=== PATIENT | male | born 1970 | race Caucasian/White ===

== ENCOUNTER 2017-06-25 10:45 | Emergency (ER) | payer BC ==
[2017-06-25 11:14] VITALS: BP 112/70
--- NOTE | 2017-06-25 12:37 | UC ---
UC General HPI - HPI Summary HPI Summary: 47 y/o male presents to the urgent care c/o of FLORES, fatigue, join pains for the past 1 week. Pt is concerned with Lyme disease. Pt reports he has been exposed to tick bites in the past and has not taking any prophylactic treatment. Pt states he has had mild fever at home. Denies SOB, chest pain, N/V /D or urinary symptoms. Pt has not other complains. - History of Current Complaint Hx Obtained From: Patient Onset/Duration: Gradual Onset, Lasting Days, Still Present Onset Severity: Mild Current Severity: Moderate Pain Intensity: 4 - headache Associated Signs & Symptoms: Positive: Fever, Weakness. Negative: Abdominal Pain, Back Pain, Chest Pain, Diarrhea, Dysuria, Nausea, Vomiting <Cristy Hutchins - Last Filed: 06/26/17 20:54> <Marleen Pollock - Last Filed: 06/27/17 07:36> - History of Current Complaint Chief Complaint: UCGeneralIllness Stated Complaint: FEVER HEADACHES BODYACHES Time Seen by Provider: 06/25/17 12:22 - Allergy/Home Medications Allergies/Adverse Reactions: Allergies Allergy/AdvReac Type Severity Reaction Status Date / Time Diazepam [From Valium] Allergy Hives Verified 06/26/17 21:36 Penicillins Allergy Unknown Verified 06/26/17 21:36 Reaction Details PMH/Surg Hx/FS Hx/Imm Hx Previously Healthy: Yes Endocrine History: Dyslipidemia - diet control Cardiovascular History: Hypertension - Diet control - Surgical History Surgical History: Yes Surgery Procedure, Year, and Place: left knee repair 2013 - Family History Family History: Thyroid cancer, dyslipidemia - Social History Occupation: Employed Full-time Lives: With Family Alcohol Use: Occasionally Alcohol Amount: 4-6 PER WEEK Substance Use Type: None, Marijuana Substance Use Comment - Amount & Last Used: occasionally Smoking Status (MU): Never Smoked Tobacco Have You Smoked in the Last Year: No <Cristy Hutchins - Last Filed: 06/26/17 20:54> Review of Systems Constitutional: Fever - at home, Fatigue Skin: Negative Eyes: Negative ENT: Negative Respiratory: Negative Cardiovascular: Palpitations Gastrointestinal: Negative Genitourinary: Negative Motor: Negative Neurovascular: Negative Musculoskeletal: Arthralgia Neurological: Headache Psychological: Negative All Other Systems Reviewed And Are Negative: Yes <Cristy Hutchins - Last Filed: 06/26/17 20:54> Physical Exam Triage Information Reviewed: Yes Appearance: Well-Appearing, No Pain Distress, Well-Nourished Vital Signs: Initial Vital Signs Temp 97.7 F 06/25/17 11:10 Pulse 80 06/25/17 11:10 Resp 16 06/25/17 11:10 BP 112/70 06/25/17 11:10 Pulse Ox 98 06/25/17 11:10 Vital Signs Reviewed: Yes Eye Exam: Normal - PERRLA, EOMI, fundi grossly normal Eyes: Positive: Conjunctiva Clear ENT Exam: Normal ENT: Positive: Normal ENT inspection, Hearing grossly normal, Pharynx normal, TMs normal Dental Exam: Normal Neck exam: Normal Neck: Positive: Supple, Nontender, No Lymphadenopathy Respiratory Exam: Normal Respiratory: Positive: Chest non-tender, Lungs clear, Normal breath sounds Cardiovascular Exam: Normal Cardiovascular: Positive: RRR, No Murmur, Pulses Normal Abdominal Exam: Normal Abdomen Description: Positive: Nontender, No Organomegaly. Negative: CVA Tenderness (R), CVA Tenderness (L) Bowel Sounds: Positive: Present Musculoskeletal Exam: Normal Musculoskeletal: Positive: Strength Intact, ROM Intact, No Edema Neurological Exam: Normal Psychological Exam: Normal Skin Exam: Normal <Cristy Hutchins - Last Filed: 06/26/17 20:54> Vital Signs: Initial Vital Signs Temp 97.7 F 06/25/17 11:10 Pulse 80 06/25/17 11:10 Resp 16 06/25/17 11:10 BP 112/70 06/25/17 11:10 Pulse Ox 98 06/25/17 11:10 <Marleen Pollock - Last Filed: 06/27/17 07:36> Course/Dx - Course Course Of Treatment: 47 y/o male presents to the urgent care c/o of FLORES, fatigue , join pains for the past 1 week. Pt is concerned with Lyme disease. Pt reports he has been exposed to tick bites in the past and has not taking any prophylactic treatment. Pt states he has had mild fever at home. Denies SOB, chest pain, N/V/D or urinary symptoms. Hx obtained. PE WNL. Exposure to tick bites in the past, no HX of rashes, Pt w/ arthalgias, FLORES , fever. concerned w/ Lyme disease and reqeuset Serology. Pt counceled in the posibility that results may return negative at the onset of disease. However Pt still wants the test. Pt Rx Doxycycline PO and Ibuprofen PO OTC to alleviate symptoms of FLORES. Advised to take the full course of ABX despite the results or wait for test results and f/u with PCP for further evaluation and treatment or w/ DR Ellis infectious Disease DR. Pt understood and agreed and left the clinic ambulating. - Differential Dx - Multi-Symptom Differential Diagnoses: Other - tick born illness, URI, headache, influenza, pharyngitis, Provider Diagnoses: 1-Headache. 2-Arthralgias <Cristy Hutchins - Last Filed: 06/26/17 20:54> Discharge <Cristy Hutchins - Last Filed: 06/26/17 20:54> <Marleen Pollock - Last Filed: 06/27/17 07:36> - Discharge Plan Condition: Stable Disposition: HOME Patient Education Materials: Lyme Disease (ED) Referrals: Diamond GONZALES,Tonya Grullon [Primary Care Provider] - 1 Week [place] SAGE,Jose Costa [Medical Doctor] - If Needed Additional Instructions: Please take full course of antibiotic as directed even though Lyme serology return negative. Please f/u with your PCP if symptoms do not improve or worsen for further evaluation and treatment. If lyme serology return positive you will get a call from us. If positive serology please f/u with DR Ellis specialized in Lyme disease. Attestation Statement User Type: Provider - I was available for consult. This patient was seen by the advanced practice provider. The patient was not presented to, seen by, or examined by me.-Casey <Marleen Pollock - Last Filed: 06/27/17 07:36>
== END 2017-06-25 12:43 | disposition home or self-care (01) ==
LOC: UCEAST 10:45
DX: R51 Headache (principal); M25.50 Pain in unspecified joint; R53.83 Other fatigue; R50.9 Fever, unspecified; Z88.0 Allergy status to penicillin; F12.90 Cannabis use, unspecified, uncomplicated
CPT/HCPCS: 86618; 99212; G0463

== ENCOUNTER 2017-06-26 19:03 | Emergency (ER) | payer BC ==
[2017-06-26 19:11] VITALS: BP 133/80
[2017-06-26] MEDS ORDERED: Ibuprofen TAB* 600 MG PO ONE (19:20)
--- NOTE | 2017-06-26 20:22 | UC ---
HPI Febrile Illness - HPI Summary HPI Summary: Fever, aches, chills, FLORES starting 3 days ago. Had one known tick bite 6 weeks ago, thinks it was only on for a few hours. Seen here yesterday for same, drawn for lyme titer and rx doxycycline. Has not started it, wants to wait for a positive test before starting abx. Also having bilat flank pain and facial swelling, feels he should be checked for a kidney infection. - History of Current Complaint Chief Complaint: UCGeneralIllness Time Seen by Provider: 06/26/17 20:03 Hx Obtained From: Patient Onset/Duration: Started Days Ago Timing: Constant Initial Severity: Moderate Current Severity: Moderate Alleviating Factors: OTC Medicine Associated Signs and Symptoms: Chills, Headache, Joint Pain, Myalgia Related History: Recent Tick Bite - low-risk, 6 weeks ago - Allergy/Home Medications Allergies/Adverse Reactions: Allergies Allergy/AdvReac Type Severity Reaction Status Date / Time Diazepam [From Valium] Allergy Hives Verified 06/26/17 19:10 Penicillins Allergy Unknown Verified 06/26/17 19:10 Reaction Details Home Medications: Home Medications Ibuprofen TAB* [Advil TAB*] 600 mg PO PRN 06/26/17 [History] PMH/Surg Hx/FS Hx/Imm Hx Previously Healthy: Yes Endocrine/Hematology History: Denies: Hx Diabetes Cardiovascular History: Denies: Hx Hypertension, Hx Pacemaker/ICD, Other Cardiovascular Problems/ Disorders Respiratory History: Denies: Other Respiratory Problems/Disorders GI History: Denies: Other GI Disorders History: Denies: Hx Renal Disease Musculoskeletal History: Reports: Hx Arthritis - HANDS Denies: Other Musculoskeletal History Sensory History: Denies: Hx Contacts or Glasses, Hx Hearing Aid Opthamlomology History: Denies: Hx Contacts or Glasses Neurological History: Denies: Other Neuro Impairments/Disorders Psychiatric History: Denies: Hx Panic Disorder - Cancer History Hx Hematologic Symptoms: No Hx Chemotherapy: No - Surgical History Surgery Procedure, Year, and Place: left knee repair 2014 Hx Anesthesia Reactions: No Infectious Disease History: No Infectious Disease History: Denies: Hx Clostridium Difficile, Hx Hepatitis, Hx Human Immunodeficiency Virus (HIV), Hx of Known/Suspected MRSA, Hx Shingles, Hx Tuberculosis, Hx Known/ Suspected VRE, Hx Known/Suspected VRSA, History Other Infectious Disease, Traveled Outside the [place] in Last 30 Days - Family History Known Family History: Positive: Hypertension - Social History Alcohol Use: Occasionally Alcohol Amount: 4-6 PER WEEK Substance Use Type: Reports: None, Marijuana Substance Use Comment - Amount & Last Used: occasionally Smoking Status (MU): Never Smoked Tobacco Have You Smoked in the Last Year: No Review of Systems Constitutional: Fever, Chills, Fatigue Skin: Negative Eyes: Negative ENT: Negative Respiratory: Negative Cardiovascular: Negative Gastrointestinal: Negative Genitourinary: Negative Motor: Negative Neurovascular: Negative Musculoskeletal: Arthralgia, Decreased ROM, Myalgia Neurological: Headache Psychological: Negative All Other Systems Reviewed And Are Negative: Yes Physical Exam Triage Information Reviewed: Yes Appearance: Well-Nourished, Other: - febrile, sweating Vital Signs: Initial Vital Signs Temp 102.8 F 06/26/17 19:06 Pulse 103 06/26/17 19:06 Resp 16 06/26/17 19:06 BP 133/80 06/26/17 19:06 Pulse Ox 100 06/26/17 19:06 Eye Exam: Other - PERRL Eyes: Positive: Conjunctiva Clear, Other: - eyelids puffy ENT Exam: Normal ENT: Positive: Normal ENT inspection, Hearing grossly normal, Pharynx normal, TMs normal Dental Exam: Normal Neck exam: Normal Neck: Positive: Supple, Nontender, No Lymphadenopathy Respiratory Exam: Normal Respiratory: Positive: Chest non-tender, Lungs clear, Normal breath sounds, No respiratory distress, No accessory muscle use Cardiovascular: Positive: No Murmur, Tachycardia Abdomen Description: Positive: Nontender, No Organomegaly, Soft. Negative: CVA Tenderness (R), CVA Tenderness (L) Musculoskeletal Exam: Normal Musculoskeletal: Positive: Strength Intact, ROM Intact Neurological Exam: Normal Neurological: Positive: Alert Psychological Exam: Normal Skin Exam: Other - swelling in eyelids Course/Dx - Diagnoses Clinic Provider Diagnoses: fever - Provider Notifications Discussed Patient Care With: Amanda Nagel Discussed With Above Provider: 20:32 Discharge - Discharge Plan Condition: Stable Disposition: AGAINST MEDICAL ADVICE
== END 2017-06-26 20:44 | disposition left against medical advice (07) ==
LOC: UCEAST 19:03
DX: R50.9 Fever, unspecified (principal); Z53.20 Procedure and treatment not carried out because of patient's decision for unspecified reasons
CPT/HCPCS: 81003; 87502; 99212; A9270-GY; G0463

== ENCOUNTER 2017-06-26 21:26 | Emergency (ER) | payer BC ==
[2017-06-26 23:36] LABS: Urine Bacteria 1+ (Absent); Urine Bilirubin Negative (Negative); Urine Glucose Negative (Negative); Urine Nitrite Negative (Negative)
[2017-06-27] MEDS ORDERED: Ketorolac INJ* 30 MG/ML 1 ML VIAL IV ONE (00:06)
[2017-06-27] MEDS ORDERED: NS 0.9% 1000 ML* 1,000 ML IV ONE (00:08)
[2017-06-27 00:52] LABS: Hematocrit 43 % (42-52); Hemoglobin 14.5 g/dl (14.0-18.0); Mean Corpuscular HGB Conc 34 g/dl (31-36); Mean Corpuscular Hemoglobin 30 pg (27-31); Mean Corpuscular Volume 89 fL (80-94); Mean Platelet Volume 9 um3 (7.4-10.4); Red Blood Count 4.85 10^6/ul (4.0-5.4); Red Cell Distribution Width 14 % (10.5-15); White Blood Count 6.1 10^3/ul (3.5-10.8)
[2017-06-27 01:12] LABS: Albumin 4.2 g/dL (3.2-5.2); BUN/Creatinine Ratio 10.7 (8-20); Calcium 9.4 mg/dL (8.6-10.3); EGFR African American 82.3 (>60); Globulin 3.3 g/dL (2-4); Total Bilirubin 1.3 mg/dL (0.2-1.0); Total Protein 7.5 g/dL (6.4-8.9)
--- NOTE | 2017-06-27 01:30 | ED ---
José Miguel Vazquez Alfonso, scribed for Gail Pinzon MD on 06/26/17 at 2340 . HPI Febrile Illness - HPI Summary HPI Summary: This patient is a 47 year old M presenting from [facility] to [facility] with a chief complaint of febrile illness since 3 days ago. Pt rates the pain 2/10 in severity. Symptoms alleviated by OTC medications. Pt reports chills, diaphoresis , flank pain, facial swelling, slight headache, and low back stiffness. Pt denies cough, dysuria, and urinary retention. He reports known tick bites approximately 6 weeks ago for which he had a drawn for a Lyme titer and rx doxycycline. He has not begun taking doxycycline. Pt denies IVDA. Denies PMHx of DM. PMHx of HLD. - History of Current Complaint Chief Complaint: EDFever Time Seen by Provider: 06/26/17 22:59 Hx Obtained From: Patient Onset/Duration: Started Days Ago - 3, Still Present Timing: Constant Initial Severity: Mild Current Severity: Mild Pain Intensity: 2 Pain Scale Used: 0-10 Numeric Alleviating Factors: OTC Medicine Associated Signs and Symptoms: Other: - . Pt reports chills, diaphoresis, flank pain, facial swelling, slight headache, and low back stiffness. Pt denies cough, dysuria, and urinary retention. Related History: Recent Tick Bite - 6 weeks ago approx. - Allergy/Home Medications Allergies/Adverse Reactions: Allergies Allergy/AdvReac Type Severity Reaction Status Date / Time Diazepam [From Valium] Allergy Hives Verified 06/26/17 21:36 Penicillins Allergy Unknown Verified 06/26/17 21:36 Reaction Details PMH/Surg Hx/FS Hx/Imm Hx Endocrine/Hematology History: Denies: Hx Diabetes Cardiovascular History: Denies: Hx Hypertension, Hx Pacemaker/ICD, Other Cardiovascular Problems/ Disorders Respiratory History: Denies: Other Respiratory Problems/Disorders GI History: Denies: Other GI Disorders History: Denies: Hx Renal Disease Musculoskeletal History: Reports: Hx Arthritis - HANDS Denies: Other Musculoskeletal History Sensory History: Denies: Hx Contacts or Glasses, Hx Hearing Aid Opthamlomology History: Denies: Hx Contacts or Glasses Neurological History: Denies: Other Neuro Impairments/Disorders Psychiatric History: Denies: Hx Panic Disorder - Cancer History Hx Hematologic Symptoms: No Hx Chemotherapy: No - Surgical History Surgery Procedure, Year, and Place: left knee repair 2014 Hx Anesthesia Reactions: No Infectious Disease History: No Infectious Disease History: Denies: Hx Clostridium Difficile, Hx Hepatitis, Hx Human Immunodeficiency Virus (HIV), Hx of Known/Suspected MRSA, Hx Shingles, Hx Tuberculosis, Hx Known/ Suspected VRE, Hx Known/Suspected VRSA, History Other Infectious Disease, Traveled Outside the [place] in Last 30 Days - Family History Known Family History: Positive: Hypertension - Social History Lives: With Family - Alcohol Use: Occasionally Alcohol Amount: 4-6 PER WEEK Substance Use Type: Reports: Marijuana Substance Use Comment - Amount & Last Used: occasionally Smoking Status (MU): Never Smoked Tobacco Have You Smoked in the Last Year: No Review of Systems Positive: Fever, Chills, Skin Diaphoresis Negative: Cough Positive: Other - Positive flank pain Positive: other - Negative urinary retention. Negative: dysuria Positive: Other - Positive facial swelling, and low back stiffness Positive: Headache - "Slight" All Other Systems Reviewed And Are Negative: Yes Physical Exam Triage Information Reviewed: Yes Vital Signs On Initial Exam: Initial Vitals Temp Pulse Resp BP Pulse Ox 99.9 F 90 16 126/76 97 06/26/17 21:29 06/26/17 21:29 06/26/17 21:29 06/26/17 21:29 06/26/17 21:29 Vital Signs Reviewed: Yes Appearance: Positive: Well-Appearing, No Pain Distress Skin: Positive: Warm, Skin Color Reflects Adequate Perfusion, Dry Head/Face: Positive: Normal Head/Face Inspection Eyes: Positive: EOMI, [place]ION ENT: Positive: Pharynx normal, TMs normal Neck: Positive: Supple, Nontender Respiratory/Lung Sounds: Positive: Clear to Auscultation, Breath Sounds Present. Negative: Rales, Rhonchi, Wheezes Cardiovascular: Positive: RRR, Other - No gallop. Negative: Murmur, Rub Abdomen Description: Positive: Nontender, Soft, Other: - No rebound. Negative: Distended, Guarding Bowel Sounds: Positive: Present Musculoskeletal: Positive: Strength/ROM Intact, Other - No edema Neurological: Positive: Sensory/Motor Intact, Alert, Oriented to Person Place, Time, CN Intact II-III - 2-12 Psychiatric: Positive: Affect/Mood Appropriate - [place] Coma Scale Coma Scale Total: 15 Diagnostics - Vital Signs Vital Signs Temp Pulse Resp BP Pulse Ox 06/26/17 22:35 97.4 F 75 16 124/70 99 06/26/17 21:29 99.9 F 90 16 126/76 97 - Laboratory Lab Results: Lab Results 06/26/17 06/27/17 06/27/17 Range/Units 23:23 00:40 00:40 WBC 6.1 (3.5-10.8) 10^3/ul RBC 4.85 (4.0-5.4) 10^6/ul Hgb 14.5 (14.0-18.0) g/dl Hct 43 (42-52) % MCV 89 (80-94) fL MCH 30 (27-31) pg MCHC 34 (31-36) g/dl RDW 14 (10.5-15) % Plt Count 179 (150-450) 10^3/ul MPV 9 (7.4-10.4) um3 Neut % (Auto) 76.2 (38-83) % Lymph % (Auto) 11.7 L (25-47) % [place] % (Auto) 11.1 H (1-9) % Eos % (Auto) 0.5 (0-6) % Baso % (Auto) 0.5 (0-2) % Absolute Neuts (auto) 4.6 (1.5-7.7) 10^3/ul Absolute Lymphs (auto) 0.7 L (1.0-4.8) 10^3/ul Absolute Monos (auto) 0.7 (0-0.8) 10^3/ul Absolute Eos (auto) 0 (0-0.6) 10^3/ul Absolute Basos (auto) 0 (0-0.2) 10^3/ul Absolute Nucleated RBC 0 10^3/ul Nucleated RBC % 0.1 Sodium 133 (133-145) mmol/L Potassium 4.0 (3.5-5.0) mmol/L Chloride 98 L (101-111) mmol/L Carbon Dioxide 28 (22-32) mmol/L Anion Gap 7 (2-11) mmol/L BUN 13 (6-24) mg/dL Creatinine 1.21 H (0.67-1.17) mg/dL Est GFR ( Amer) 82.3 (>60) Est GFR (Non-Af Amer) 64.0 (>60) BUN/Creatinine Ratio 10.7 (8-20) Glucose 118 H (70-100) mg/dL Calcium 9.4 (8.6-10.3) mg/dL Total Bilirubin 1.30 H (0.2-1.0) mg/dL AST 33 (13-39) U/L ALT 53 H (7-52) U/L Alkaline Phosphatase 49 (34-104) U/L Total Protein 7.5 (6.4-8.9) g/dL Albumin 4.2 (3.2-5.2) g/dL Globulin 3.3 (2-4) g/dL Albumin/Globulin Ratio 1.3 (1-3) Urine Color Straw Urine Appearance Clear Urine pH 6.0 (5-9) Ur Specific [place] 1.002 L (1.010-1.030) Urine Protein Negative (Negative) Urine Ketones Negative (Negative) Urine Blood 1+ H (Negative) Urine Nitrate Negative (Negative) Urine Bilirubin Negative (Negative) Urine Urobilinogen Negative (Negative) Ur Leukocyte Esterase Negative (Negative) Urine WBC (Auto) Absent (Absent) Urine RBC (Auto) Trace(0-2/hpf) (Absent) Urine Bacteria 1+ H (Absent) Urine Glucose Negative (Negative) Result Diagrams: 06/27/17 00:40 06/27/17 00:40 Lab Statement: Any lab studies that have been ordered have been reviewed, and results considered in the medical decision making process. - Radiology CXR Radiology Interpretation Completed By: ED Physician - NAD Course/Dx - Course Course Of Treatment: 47 yo male diagnosed with presumed lyme here with fevers at home labs here normal, pt advised to start doxy given at [facility] care for lyme - Diagnoses Provider Diagnoses: Lyme disease Discharge - Discharge Plan Condition: Stable Disposition: HOME Patient Education Materials: Lyme Disease (ED), Fever in Adults (ED) Referrals: Diamond GONZALES,Tonya Grullon [Primary Care Provider] - 3 Days The documentation as recorded by the José Miguel bates Alfonso accurately reflects the service I personally performed and the decisions made by me, aGil Pinzon MD.
[2017-06-27 01:37] VITALS: BP 124/77
--- NOTE | 2017-06-27 07:33 | RAD ---
INDICATION: Fever. COMPARISON: There are no prior studies available for comparison. TECHNIQUE: Dual-energy PA and lateral views of the chest were obtained. FINDINGS: The heart is within normal limits in size. Mediastinal and hilar contours appear within normal limits. The lungs are clear. No pleural effusion is present. IMPRESSION: NO EVIDENCE FOR ACTIVE CARDIOPULMONARY DISEASE.
== END 2017-06-27 01:37 | disposition home or self-care (01) ==
LOC: ED 21:26
DX: A69.20 Lyme disease, unspecified (principal); R10.84 Generalized abdominal pain; R50.9 Fever, unspecified
CPT/HCPCS: 36415; 71020; 80053; 81003; 81015; 85025; 86618; 87086; 96361; 96374; 99284; J1885